=== PATIENT | female | born 1980 | race Caucasian/White ===

== ENCOUNTER → 2022-01-10 | Outpatient (CLI) | payer OTHER, SELFPAY ==
[2022-01-10 09:19] VITALS: BP 121/75; PULSE 79; RESP 18; TEMP 36.4; O2SAT 100; BMI 25.0
--- NOTE | 2022-01-10 10:30 | RAD_ITS ---
STUDY: X-RAY CHEST REASON FOR EXAM: Female, 41 years old. Post picc line placement TECHNIQUE: Single AP portable view of the chest. COMPARISON: None. FINDINGS: A right-sided PICC line catheter has been placed. The guidewire is within it. The distal tip is coiled in the proximal portion of the superior vena cava. The lungs are clear and expanded. There is no demonstrated pleural abnormality. Normal size heart. Normal mediastinum and paul. Normal visualized pulmonary arteries. Normal visualized aortic arch and descending thoracic aorta. Normal visualized thoracic spine. Normal visualized ribs, clavicles, and shoulders. There is no demonstrated abnormality of the visualized soft tissue structures of the upper abdomen. RAD/CXR for Line Placement IMPRESSION: Distal tip of the PICC line catheter is coiled in the proximal portion of the superior vena cava. The guidewire is seen within the catheter. Electronically Signed: Ricki Rg MD at 10:49 EDT ,
--- NOTE | 2022-01-10 10:40 | RAD_ITS ---
STUDY: X-RAY CHEST REASON FOR EXAM: Female, 41 years old. 2nd cxr for line placement TECHNIQUE: Single AP portable view of the chest. COMPARISON: Comparison is made with prior study done earlier today. FINDINGS: The tip of the PICC line catheter is in the cervical region. RAD/CXR for Line Placement IMPRESSION: The tip of the PICC line catheter is in the right cervical region. Electronically Signed: Ricki Rg MD at 11:10 EDT ,
--- NOTE | 2022-01-10 10:52 | RAD_ITS ---
STUDY: X-RAY CHEST REASON FOR EXAM: Female, 41 years old. 3rd cxr for PICC line placement TECHNIQUE: Single AP portable view of the chest. COMPARISON: Comparison is made with prior study done earlier. FINDINGS: The tip of the right PICC line catheter is in the right cervical region. RAD/CXR for Line Placement IMPRESSION: The tip of the right-sided PICC line catheter is in the right cervical region. Electronically Signed: Ricki Rg MD at 11:11 EDT ,
--- NOTE | 2022-01-10 10:53 | RAD_ITS ---
STUDY: X-RAY CHEST REASON FOR EXAM: Female, 41 years old. 4th cxr for PICC line placement TECHNIQUE: Single AP portable view of the chest. COMPARISON: Comparison is made with prior study done earlier today. FINDINGS: The tip of the PICC line catheter is at the junction of the superior vena cava and right atrium. RAD/CXR for Line Placement IMPRESSION: The tip of the PICC line catheter is at the junction of the superior vena cava and right atrium. Electronically Signed: Ricki Rg MD at 11:09 EDT ,
== END | disposition home or self-care (01) ==
PROVIDERS: Visit Provider Nurse Practitioner Family
DX: A44.9 Bartonellosis, unspecified (principal); A69.20 Lyme disease, unspecified
CPT/HCPCS: 36569; 71045